=== PATIENT | male | born 1995 | race Caucasian/White ===

== ENCOUNTER 2017-03-10 18:56 | Emergency (ER) | payer SELFPAY | END 2017-03-10 19:53 | disposition home or self-care (01) | LOC: D.ER 18:56 | DX: S89.91XA Unspecified injury of right lower leg, initial encounter (principal); X58.XXXA Exposure to other specified factors, initial encounter; Y93.67 Activity, basketball; Y92.89 Other specified places as the place of occurrence of the external cause ==